=== PATIENT | female | born 1970 | race Hispanic/Latino ===

== ENCOUNTER 2022-07-23 04:04 | Emergency (ER) | payer BC ==
--- OUTSIDE RECORDS SUMMARY | 2022-07-23 04:08 | XMS REPORT | Continuity of Care Document ---
:[address] [facility] t Address [address] Rud[place] [address] [place] [id number] Care Team Providers Name Role Phone [facility]_Walk-In Attending Clinician Unavailable Lisandra Candelario Attending Clinician [phone] Efra Attending Clinician Unavailable Maycol Whitfield Attending Clinician [phone] EDDIE PERRY M.D. Attending Clinician Unavailable [facility]PC[facility]_Walk-In Admitting Clinician Unavailable Efra Admitting Clinician Unavailable Payers Payer Name Policy Type Policy Number Effective Date Expiration Date S [place] [id number] 2021 00:00:00 [place] [id number] 2021 00:00:00 [place] Problems Condition Condition Condition Status Onset Resolution Last Treating Co mments Source Name Details Category Date Date Treatment Clinician Date Hyperlipid Hyperlipid Problem Active P [facility] emia emia 2- Medical 00:00: 00 Systemic Systemic Problem Active [facility] lupus Lupus 2- Medical erythemato Erythemato 00:00: opal poal 00 History of History of Problem Resolve [facility] Abnormal Abnormal d Physic i liver liver ans function function History of History of Problem Resolve [facility] hyperpigme hyperpigme d Ph ys[facility] ntation of ntation of an s skin skin High risk High risk Problem Active [facility] medication medication Ph ysici use use ans History of History of Problem Resolve UT Polyarthra Polyarthra d Ph ysici lgia lgia ans SLE SLE Problem Active UT (systemic (systemic Phys ici lupus lupus ans erythemato erythemato opal) opal) Hematuria Hematuria Problem Active [facility] ans Allergies, Adverse Reactions, Alerts This patient has no known allergies or adverse reactions. Social History Smoking Status Start Date Stop Date Source Never Smoker [facility] Medications Ordered Filled Start Stop Current Ordering Indication Dosage Frequency Signature Comments Components Source Medication Medication Date Date Medication? Clinician (SIG) Name Name predniSONE predniSONE 2018-09 Yes EDDIE TAKE 1 UT 5 MG Oral 5 MG Oral 2-12 AHMED M.D. TABLET [facility] Tablet Tablet 00:00: EVERY ans 00 MORNINg NEEDED FOR FLARE-UPS. predniSONE predniSONE Yes EDDIE TAKE 4 UT 1 MG Oral 1 MG Oral 7-05 AHMED M.D. TABLETS BY Physici Tablet Tablet 00:00: MOUTH ONCE ans 00 DAILY Hydroxychlo Hydroxychlo Yes EDDIE TAKE ONE UT roquine roquine 7-05 AHMED M.D. AND Phy sici Sulfate 200 Sulfate 200 00:00: ONE-HALF ans MG Oral MG Oral 00 TABLET BY Tablet Tablet MOUTH DAILY DULoxetine DULoxetine Yes UT HCl - 60 MG HCl - 60 MG P hysici Oral Oral ans Capsule Capsule Delayed Delayed Release Release Particles Particles Furosemide Furosemide Yes UT 20 MG Oral 20 MG Oral Phy sici Tablet Tablet ans metFORMIN metFORMIN Yes UT HCl - 500 HCl - [address] Physi [address] MG Oral MG Oral ans Tablet Tablet Lisinopril Lisinopril Yes UT 20 MG Oral 20 MG Oral Phy sici Tablet Tablet ans Simvastatin Simvastatin Yes U T 40 MG Oral 40 MG Oral Phy sici Tablet Tablet ans Raloxifene Raloxifene Yes UT HCl - 60 MG HCl - 60 MG P hysici Oral Tablet Oral Tablet a ns Vitamin D3 Vitamin D3 Yes UT 25 MCG 25 MCG Physici (1000 UT) (1000 UT) ans Oral Tablet Oral Tablet ZyrTEC ZyrTEC Yes UT Allergy Allergy Physici CAPS CAPS ans Potassium Potassium Yes UT Citrate ER Citrate ER Phy sici TBCR TBCR ans hydroxychlo hydroxychlo No 1 Q1D hydroxychl [facility] roquine 200 roquine 200 oroquine Medical mg tablet mg tablet 200 mg Take 1 Take 1 tablet tablet tablet Take 1 every day every day tablet by oral by oral every day route. route. by oral route. prednisone prednisone No 1 Q1D prednisone [facility] 5 mg tablet 5 mg tablet 5 mg M edical Take 1 Take 1 tablet tablet tablet Take 1 every day every day tablet by oral by oral every day route. route. by oral route. hydroxychlo hydroxychlo No 1 Q1D hydroxychl [facility] roquine 200 roquine 200 oroquine Medical mg tablet mg tablet 200 mg Take 1 Take 1 tablet tablet tablet Take 1 every day every day tablet by oral by oral every day route. route. by oral route. prednisone prednisone No 1 Q1D prednisone [facility] 5 mg tablet 5 mg tablet 5 mg M edical Take 1 Take 1 tablet tablet tablet Take 1 every day every day tablet by oral by oral every day route. route. by oral route. hydroxychlo hydroxychlo No 1 BID hydroxychl [facility] roquine 200 roquine 200 oroquine Medical mg tablet mg tablet 200 mg Take 1 Take 1 tablet tablet tablet Take 1 twice a day twice a day tablet by oral by oral twice a route for route for day by 90 days. 90 days. oral route for 90 days. prednisone prednisone No prednisone [facility] 5 mg tablet 5 mg tablet 5 mg M edical Take 2 tabs Take 2 tabs tablet PO x 30 PO x 30 Take 2 days then 1 days then 1 tabs PO x PO QD PO QD 30 days then 1 PO QD Advil 200 Advil 200 No 2 Q6H Advil 200 [facility] mg tablet mg tablet mg tablet Medical Take 2 Take 2 Take 2 tablets tablets tablets every 6 every 6 every 6 hours by hours by hours by oral route oral route oral route as as as directed. directed. directed. amoxicillin amoxicillin No 1capsul Q8H amoxicilli [facility] 500 mg 500 mg e(s) n 500 mg Medical capsule capsule capsule Take 1 Take 1 Take 1 capsule capsule capsule every 8 every 8 every 8 hours by hours by hours by oral route. oral route. oral route. hydroxychlo hydroxychlo No hydroxychl [facility] roquine 200 roquine 200 oroquine Medical mg tablet mg tablet 200 mg Take 1 Take 1 tablet tablet by tablet by Take 1 mouth once mouth once tablet by daily daily mouth once daily naproxen naproxen No 1 BID naproxen Betzaida via 500 mg 500 mg 500 mg Medical tablet Take tablet Take tablet 1 tablet 1 tablet Take 1 twice a day twice a day tablet by oral by oral twice a route as route as day by needed. needed. oral route as needed. prednisone prednisone No prednisone [facility] 5 mg tablet 5 mg tablet 5 mg M edical 1 PO QD 1 PO QD tablet 1 PO QD Immunizations Ordered Immunization Filled Immunization Date Status Commen ts Source Name Name COVID-19, mRNA, COVID-19, mRNA, 2021-06-02 Completed [facility] LNP-S, PF, 50 LNP-S, PF, 50 00:00:00 mcg/0.5 mL dose mcg/0.5 mL dose (Moderna) (Moderna) COVID-19, mRNA, COVID-19, mRNA, 2021-06-02 Completed [facility] LNP-S, PF, 50 LNP-S, PF, 50 00:00:00 mcg/0.5 mL dose mcg/0.5 mL dose (Moderna) (Moderna) COVID-19, mRNA, COVID-19, mRNA, 2020-11-08 Completed [facility] LNP-S, PF, 50 LNP-S, PF, 50 00:00:00 mcg/0.5 mL dose mcg/0.5 mL dose (Moderna) (Moderna) COVID-19, mRNA, COVID-19, mRNA, 2020-11-08 Completed [facility] LNP-S, PF, 50 LNP-S, PF, 50 00:00:00 mcg/0.5 mL dose mcg/0.5 mL dose (Moderna) (Moderna) COVID-19, mRNA, COVID-19, mRNA, 2020-10-12 Completed [facility] LNP-S, PF, 50 LNP-S, PF, 50 00:00:00 mcg/0.5 mL dose mcg/0.5 mL dose (Moderna) (Moderna) COVID-19, mRNA, COVID-19, mRNA, 2020-10-12 Completed [facility] LNP-S, PF, 50 LNP-S, PF, 50 00:00:00 mcg/0.5 mL dose mcg/0.5 mL dose (Moderna) (Moderna) tetanus toxoid, tetanus toxoid, 2014-07-10 Completed [facility] unspecified unspecified 00:00:00 formulation formulation tetanus toxoid, tetanus toxoid, 2014-07-10 Completed [facility] unspecified unspecified 00:00:00 formulation formulation tetanus toxoid, tetanus toxoid, 2014-07-10 Completed [facility] unspecified unspecified 00:00:00 formulation formulation tetanus toxoid, tetanus toxoid, 2014-07-10 Completed [facility] unspecified unspecified 00:00:00 formulation formulation Vital Signs Vital Name Observation Time Observation Value Comments Source BP Diastolic 2022-07-16 00:00:00 86 mm[Hg] [facility] Height 2022-07-16 00:00:00 63 [in_i] [facility] BMI (Body Mass 2022-07-16 00:00:00 28.2 kg/m2 [facility]) BP Systolic 2022-07-16 00:00:00 123 mm[Hg] [facility] Body Weight 2022-07-16 00:00:00 2544 [oz_av] [facility] BP Diastolic 2022-04-23 00:00:00 84 mm[Hg] [facility] Height 2022-04-23 00:00:00 63 [in_i] [facility] BMI (Body Mass 2022-04-23 00:00:00 28.7 kg/m2 [facility]) BP Systolic 2022-04-23 00:00:00 123 mm[Hg] [facility] Body Weight 2022-04-23 00:00:00 2596 [oz_av] [facility] BP Diastolic 2022-02-07 00:00:00 92 mm[Hg] [facility] Height 2022-02-07 00:00:00 63 [in_i] [facility] BMI (Body Mass 2022-02-07 00:00:00 28.6 kg/m2 [facility]) BP Systolic 2022-02-07 00:00:00 132 mm[Hg] [facility] Body Weight 2022-02-07 00:00:00 2582 [oz_av] [facility] BP Diastolic 2021-10-10 00:00:00 80 mm[Hg] [facility] Height 2021-10-10 00:00:00 63 [in_i] [facility] BMI (Body Mass 2021-10-10 00:00:00 28.3 kg/m2 [facility]) BP Systolic 2021-10-10 00:00:00 125 mm[Hg] [facility] Body Weight 2021-10-10 00:00:00 2560 [oz_av] [facility] BP Systolic 2019-08-20 15:29:00 122 mm[Hg] [facility] BP Diastolic 2019-08-20 15:29:00 85 mm[Hg] [facility] Height 2019-08-20 15:29:00 62 [in_us] [facility] Weight 2019-08-20 15:29:00 155 [lb_av] [facility] Body Mass Index 2019-08-20 15:29:00 28.35 kg/m2 [facility] Calculated Heart Rate 2019-08-20 15:29:00 69 /min [facility] BP Systolic 2018-11-07 15:07:00 120 mm[Hg] Location: [facility]; [place] [facility] Position: Sitting BP Diastolic 2018-11-07 15:07:00 88 mm[Hg] Location: [facility] [facility] Position: Sitting Procedures Procedure Date / Time Performed Performing Clinician [facility] e ULTRASOUND, ABDOMINAL, REAL 2022-02-07 00:00:00 [facility] TIME WITH IMAGE DOCUMENTATION; COMPLETE MAMMO, screening, digital, 2021-10-10 00:00:00 [facility] bilateral [QLH] URINALYSIS, COMPLETE 2019-08-20 00:00:00 [facility] [QLH] HEPATIC FUNCTION 2019-08-20 00:00:00 [facility] PANEL [QLH] CREATININE W/EGFR 2019-08-20 00:00:00 [facility] [QLH] C-REACTIVE PROTEIN 2019-08-20 00:00:00 [facility] [QLH] CBC (INCLUDES 2019-08-20 00:00:00 [facility] DIFF/PLT) [QLH] UREA NITROGEN (BUN) 2019-08-20 00:00:00 [facility] [QLH] SED RATE BY MODIFIED 2019-08-20 00:00:00 [facility] WESTERGREN [QLH] HEPATIC FUNCTION 2019-03-13 00:00:00 [facility] PANEL [QLH] URINALYSIS, COMPLETE 2019-03-13 00:00:00 [facility] W/REFLEX TO CULTURE [QLH] C-REACTIVE PROTEIN 2019-03-13 00:00:00 [facility] [QLH] SED RATE BY MODIFIED 2019-03-13 00:00:00 [facility] WESTERGREN [QLH] DNA (DS) ANTIBODY 2019-03-13 00:00:00 [facility] [QLH] CBC (INCLUDES 2019-03-13 00:00:00 [facility] DIFF/PLT) [QLH] COMPLEMENT COMPONENT 2019-03-13 00:00:00 [facility] C3C [QLH] COMPLEMENT COMPONENT 2019-03-13 00:00:00 [facility] C4C [QLH] CREATININE W/EGFR 2019-03-13 00:00:00 [facility] [QLH] CBC (INCLUDES 2018-11-07 00:00:00 [facility] DIFF/PLT) [QLH] C-REACTIVE PROTEIN 2018-11-07 00:00:00 [facility] [QLH] HEPATIC FUNCTION 2018-11-07 00:00:00 [facility] PANEL [QLH] URINALYSIS, COMPLETE 2018-11-07 00:00:00 [facility] [QLH] DNA (DS) ANTIBODY 2018-11-07 00:00:00 [facility] [QLH] COMPLEMENT COMPONENT 2018-11-07 00:00:00 [facility] C3C [QLH] COMPLEMENT COMPONENT 2018-11-07 00:00:00 [facility] C4C [QLH] CREATININE W/EGFR 2018-11-07 00:00:00 [facility] [QLH] SED RATE BY MODIFIED 2018-11-07 00:00:00 [facility] RONI Plan of Care Planned Activity Planned Date Details Comments Source Diagnostic Test 2022-07-16 TSH, serum or plasma [facility] Pending 00:00:00 [code = TSH, serum or plasma] Diagnostic Test 2022-07-16 T4, free, serum [code [facility] Pending 00:00:00 = T4, free, serum] Diagnostic Test 2022-07-16 T3, free, serum or [facility] Pending 00:00:00 plasma [code = T3, free, serum or plasma] Diagnostic Test 2019-12-14 [QLH] HEPATIC [facility] Pending 00:00:00 FUNCTION PANEL [code = [QLH] HEPATIC FUNCTION PANEL] Diagnostic Test 2019-12-14 [QLH] CREATININE [facility] Pending 00:00:00 W/EGFR [code = [QLH] CREATININE W/EGFR] Diagnostic Test 2019-12-14 [QLH] C-REACTIVE [facility] Pending 00:00:00 PROTEIN [code = [QLH] C-REACTIVE PROTEIN] Diagnostic Test 2019-12-14 [QLH] CBC (INCLUDES [facility] Pending 00:00:00 DIFF/PLT) [code = [QLH] CBC (INCLUDES DIFF/PLT)] Diagnostic Test 2019-12-14 [QLH] UREA NITROGEN [facility] Pending 00:00:00 (BUN) [code = [QLH] UREA NITROGEN (BUN)] Diagnostic Test 2019-12-14 [QLH] SED RATE BY [facility] Pending 00:00:00 MODIFIED WESTERGREN [code = [QLH] SED RATE BY MODIFIED WESTERGREN] Diagnostic Test 2019-06-27 [QLH] HEPATIC [facility] Pending 00:00:00 FUNCTION PANEL [code = [QLH] HEPATIC FUNCTION PANEL] Diagnostic Test 2019-06-27 [QLH] URINALYSIS, [facility] Pending 00:00:00 COMPLETE W/REFLEX TO CULTURE [code = [QLH] URINALYSIS, COMPLETE W/REFLEX TO CULTURE] Diagnostic Test 2019-06-27 [QLH] C-REACTIVE [facility] Pending 00:00:00 PROTEIN [code = [QLH] C-REACTIVE PROTEIN] Diagnostic Test 2019-06-27 [QLH] SED RATE BY [facility] Pending 00:00:00 MODIFIED WESTERGREN [code = [QLH] SED RATE BY MODIFIED WESTERGREN] Diagnostic Test 2019-06-27 [QLH] DNA (DS) [facility] Pending 00:00:00 ANTIBODY [code = [QLH] DNA (DS) ANTIBODY] Diagnostic Test 2019-06-27 [QLH] CBC (INCLUDES [facility] Pending 00:00:00 DIFF/PLT) [code = [QLH] CBC (INCLUDES DIFF/PLT)] Diagnostic Test 2019-06-27 [QLH] COMPLEMENT [facility] Pending 00:00:00 COMPONENT C3C [code = [QLH] COMPLEMENT COMPONENT C3C] Diagnostic Test 2019-06-27 [QLH] COMPLEMENT [facility] Pending 00:00:00 COMPONENT C4C [code = [QLH] COMPLEMENT COMPONENT C4C] Diagnostic Test 2019-06-27 [QLH] CREATININE [facility] Pending 00:00:00 W/EGFR [code = [[facility]] CREATININE W/EGFR] Encounters Start End Encounter Admission Attending Care Care Encounter Source Date/Time Date/Time Type Type Clinicians Facility Department ID 2022-06-18 Outpatient [facility] [id number] [place] 08:13:53 [id number] [facility] 2022-07-21 2022-07-21 Outpatient GC_CPCN_Wal PRIV PRIV [id number] [facility] 00:00:00 00:00:00 k-In [id number] Medica l 2022-07-16 2022-07-16 Outpatient GC_CPCN_Wal PRIV PRIV [id number] [facility] 00:00:00 00:00:00 k-In [id number] Medica l 2022-07-16 2022-07-16 Maycol [facility] [id number] [facility] 00:00:00 00:00:00 Nahid [facility] ica TILE ERECTOR: [id number] GC_CPCN_Nee [facility] [address], Office* [place] [address] , Ph. 2022-05-01 2022-05-01 Outpatient GC_CPCN_Wal PRIV PRIV [id number] [facility] 00:00:00 00:00:00 k-In [id number] Medica l 2022-04-23 2022-04-23 Outpatient GC_CPCN_Wal PRIV PRIV [id number] [facility] 00:00:00 00:00:00 k-In [id number] Medica l 2022-04-23 2022-04-23 Outpatient Candelario, PRIV PRIV [id number] 00:00:00 00:00:00 Lisandra [id number]-11ed-b [id number] 2022-04-23 2022-04-23 Lisandra [facility] [id number] [facility] 00:00:00 00:00:00 Candelario, [facility] TILE ERECTOR: [id number] [facility], Office[facility] [place] [address] , Ph. 2022-04-06 2022-04-06 Outpatient Helio_Rosa CASILLAS ME[facility]OP [id number] [place] 00:00:00 00:00:00 bin [id number] [facility] 2022-02-09 2022-02-09 Outpatient Mathew MEHOP MEHOP [id number] [place] 11:17:00 11:17:00 bin [id number] [facility] 2022-02-07 2022-02-07 Outpatient GC_CPCN_Wal PRIV PRIV [id number] [facility] 00:00:00 00:00:00 k-In [id number] Medica l 2022-02-07 2022-02-07 [facility] 00:00:00 00:00:00 [employer] [facility] ical TILE ERECTOR: [id number] GC_CPCN_[facility] [address], Office* [place] [address] , Ph. 2022-02-07 2022-02-07 Outpatient [facility] [id number] 00:00:00 00:00:00 Maycol [id number] 2021-10-10 2021-10-10 Outpatient GC_CPCN_Wal PRIV PRIV [id number] [facility] 10:38:00 10:38:00 k-In [id number] Medica l 2021-10-10 2021-10-10 [facility] 00:00:00 00:00:00 [employer] [facility] ical TILE ERECTOR: [id number] GC_CPCN_[facility] [address], Office* [place] [address] , Ph. 2021-10-10 2021-10-10 Outpatient [facility] PRIV [id number] 00:00:00 00:00:00 Maycol [id number] 2019-12-24 2019-[facility] Orthopedics [id number] [place] 15:15:00 15:15:00 t; EDDIE PERRY, - Sugar Lidia Avila 2 POD gal [place] 2 2019-08-20 2019-08-20 Appointmen IRWIN PERRY Multispecia [id number] [place] 16:00:00 16:00:00 t; EDDIE PERRY lty Lidia Miguel M.D. 2019-07-10 2019-07-10 Appointmen [facility] [id number] [place] 11:45:00 11:45:00 t; EDDIE PERRY Phys ici FAYYAZ, M.D. ans M.D. 2019-03-13 2019-03-13 Appointmen IRWIN PERRY Orthopedics [id number] [place] 12:00:00 12:00:00 t; EDDIE PERRY - Sugar Lidia Avila 2 gal [place] 2018-11-07 2018-11-07 Appoint[facility] [id number] [place] 15:15:00 15:15:00 t; EDDIE PERRY, Orthopedic P hysinato MORGAN M.D. Surgery - gal [place] [address] 2 2018-07-11 2018-07-11 Appointmen [facility] [id number] [place] 15:00:00 15:00:00 t; EDDIE PERRY Phys ici FAYYAZ, M.D. ans M.D. 2018-03-28 2018-03-28 Appointmen [facility] [id number] [place] 15:00:00 15:00:00 t; EDDIE PERRY Phys ici FAYYAZ, M.D. ans M.D. 2018-03-07 2018-03-07 Appointmen [facility] [id number] [place] 15:00:00 15:00:00 t; EDDIE PERRY Phys ici FAYYAZ, M.D. ans M.D. 2018-01-22 2018-01-22 Appointmen IRWIN PERRY [facility] [id number] [place] 15:45:00 15:45:00 t; EDDIE PERRY Phys ici FAYYAZ, M.D. ans M.D. 2017-09-20 2017-09-20 AppointIRWIN George [facility] [id number] [place] 16:00:00 16:00:00 t; EDDIE PERRY Phys ici FAYYAZ, M.D. ans M.D. 2017-08-09 2017-08-09 AppointIRWIN George [facility] [id number] [place] 15:15:00 15:15:00 t; EDDIE PERRY Phys ici FAYYAZ, M.D. ans M.D. 2017-06-14 2017-06-14 AppointIRWIN George [facility] [id number] [place] 16:00:00 16:00:00 t; EDDIE PERRY Phys ici FAYYAZ, M.D. ans M.D. 2016-11-09 2016-11-09 AppointIRWIN George [facility] [id number] [place] 08:00:00 08:00:00 t; EDDIE PERRY Phys ici FAYYAZ, M.D. ans M.D. Results Test Description Test Time Test Comments Results Result Comments Source CBC W Auto Differential panel - Blood 2021-10-11 00:00:00 Test Item Value Reference Range Interpretation Comme nts Leukocytes [#/volume] in Blood by Automated count (test 7.5 x10e3/u L 3.4-10.8 code = 6690-2) Erythrocytes [#/volume] in Blood by Automated count 4.54 x10e6/uL 3 .77-5.28 (test code = 789-8) Hemoglobin [Mass/volume] in Blood (test code = 718-7) 13.8 g/dL 11.1-15.9 Hematocrit [Volume Fraction] of Blood by Automated count 42.6 % 34.0-46.6 (test code = 4544-3) Erythrocyte mean corpuscular volume [Entitic volume] by 94 fL 79-97 Automated count (test code = 787-2) Erythrocyte mean corpuscular hemoglobin [Entitic mass] 30.4 pg 26.6-33.0 by Automated count (test code = 785-6) Erythrocyte mean corpuscular hemoglobin concentration 32.4 g/dL 31.5-35.7 [Mass/volume] by Automated count (test code = 786-4) Erythrocyte distribution width [Ratio] by Automated 12.3 % 11 .7-15.4 count (test code = 788-0) Platelets [#/volume] in Blood by Automated count (test 267 x10e3/uL 150-450 code = 777-3) Neutrophils/100 leukocytes in Blood by Automated count 65 % not estab. (test code = 770-8) Lymphocytes/100 leukocytes in Blood by Automated count 31 % not estab. (test code = 736-9) Monocytes/100 leukocytes in Blood by Automated count 3 % n ot estab. (test code = 5905-5) Eosinophils/100 leukocytes in Blood by Automated count 1 % not estab. (test code = 713-8) Basophils/100 leukocytes in Blood by Automated count 0 % n ot estab. 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 Automated count (test code = 10610-4) Immature granulocytes [#/volume] in Blood by Automated 0.0 x10e3/uL 0.0-0.1 count (test code = 10639-9) Nucleated erythrocytes/100 leukocytes [Ratio] in Blood lead furnace operator by Automated count (test code = 88058-9) Morphology [Interpretation] in Blood Narrative (test lead furnace operator code = 64963-3) [facility] panel - Serum or [id number] 00:00:00 Test Item Value Reference Range Interpretation Comments Glucose [Mass/volume] in 102 mg/dL 65-99 H Serum or Plasma (test code = 2345-7) Urea nitrogen [Mass/volume] 11 mg/dL 6-24 in Serum or Plasma (test code = 3094-0) Creatinine [Mass/volume] in 0.61 mg/dL 0.57-1.00 Serum or Plasma (test code = 2160-0) Glomerular filtration 107 mL/min/1.73 >59 rate/1.73 sq M.predicted among non-blacks [Volume Rate/Area] in Serum, Plasma or Blood by Creatinine-based formula (CKD-EPI) (test code = 09185-9) Glomerular filtration 123 mL/min/1.73 >59 rate/1.73 sq M.predicted among blacks [Volume Rate/Area] in Serum, Plasma or Blood by Creatinine-based formula (CKD-EPI) (test code = 64366-4) Urea nitrogen/Creatinine 18 9-23 [Mass Ratio] in Serum or Plasma (test code = 3097-3) Sodium [Moles/volume] in 138 mmol/L 134-144 Serum or Plasma (test code = 2951-2) Potassium [Moles/volume] in 4.6 mmol/L 3.5-5.2 Serum or Plasma (test code = 2823-3) Chloride [Moles/volume] in 104 mmol/L 96-106 Serum or Plasma (test code = 5-0) Carbon dioxide, total 17 mmol/L 20-29 L [Moles/volume] in Serum or Plasma (test code = 2027-9) Calcium [Mass/volume] in 9.0 mg/dL 8.7-10.2 Serum or Plasma (test code = 73470-2) Protein [Mass/volume] in 7.6 g/dL 6.0-8.5 Serum or Plasma (test code = 2885-2) Albumin [Mass/volume] in 4.1 g/dL 3.8-4.8 Serum or Plasma (test code = 1751-7) Globulin [Mass/volume] in 3.5 g/dL 1.5-4.5 Serum by calculation (test code = 27927-6) Albumin/Globulin [Mass Ratio] 1.2 1.2-2.2 in Serum or Plasma (test code = 1759-0) Bilirubin.total [Mass/volume] 0.2 mg/dL 0.0-1.2 in Serum or Plasma (test code = 1975-2) Alkaline phosphatase 84 IU/L 44-121 [Enzymatic activity/volume] in Serum or Plasma (test code = 6768-6) Aspartate aminotransferase 45 IU/L 0-40 H [Enzymatic activity/volume] in Serum or Plasma (test code = 1920-8) Alanine aminotransferase 61 IU/L 0-32 H [Enzymatic activity/volume] in Serum or Plasma (test code = 1742-6) [facility] - [id number] 00:00:00 Test Item Value Reference Range Interpretation Comments Specific gravity of Urine by Test 1.008 1.005-1.030 strip (test code = 5811-5) pH of Urine by Test strip (test 6.0 5.0-7.5 code = 5803-2) Color of Urine (test code = 5778-6) yellow yellow Appearance of Urine (test code = clear clear 5767-9) Leukocyte esterase [Presence] in negative negative Urine by Test strip (test code = 5799-2) Protein [Presence] in Urine by Test negative negative/trace strip (test code = 56862-9) Glucose [Presence] in Urine by Test negative negative strip (test code = 94108-2) Ketones [Presence] in Urine by Test negative negative strip (test code = 2514-8) Hemoglobin [Presence] in Urine by negative negative Test strip (test code = 5794-3) Bilirubin.total [Presence] in Urine negative negative by Test strip (test code = 5770-3) Urobilinogen [Mass/volume] in Urine 0.2 mg/dL 0.2-1.0 by Test strip (test code = 56048-0) Nitrite [Presence] in Urine by Test negative negative strip (test code = 5802-4) Microscopic observation comment [Identifier] in Urine sediment by Light microscopy (test code = 03988-2) [facility] - [facility] or [id number] 00:00:00 Test Item Value Reference Range Interpretation Comments Cholesterol [Mass/volume] in Serum 196 mg/dL 100-199 or Plasma (test code = 2093-3) Triglyceride [Mass/volume] in Serum 85 mg/dL 0-149 or Plasma (test code = 2571-8) Cholesterol in HDL [Mass/volume] in 81 mg/dL >39 Serum or Plasma (test code = 2085-9) Cholesterol in VLDL [Mass/volume] 15 mg/dL 5-40 in Serum or Plasma by calculation (test code = 31586-2) Cholesterol in LDL [Mass/volume] in 100 mg/dL 0-99 H Serum or Plasma by calculation (test code = 26985-6) Laboratory comment [Text] 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 Ratio] in [id number] 00:00:00 Test Item Value Reference Range Interpretation Comments Creatinine [Mass/volume] in Urine 27.8 mg/dL not estab. (test code = 2161-8) Microalbumin [Mass/volume] in <3.0 not estab. Urine (test code = 19313-8) Albumin/Creatinine [Mass ratio] in <11 0-29 Urine (test code = 9318-7) [facility]Hemoglobin.total in [id number] 00:00:00 Test Item Value Reference Range Interpretation Comments Hemoglobin A1c/Hemoglobin.total in 5.7 % 4.8-5.6 H Blood (test code = 4548-4) [facility]] CBC (INCLUDES DIFF/PLT)2019-08-11 13:35:00 Test Item Value Reference Range Interpretation Comments WBC (test code = 6690-2) 8.2 {x10E3/uL} 3.4-10.8 RBC (test code = 789-8) 4.09 {x10E6/uL} 3.77-5.28 Hemoglobin (test code = 12.9 g/dL 11.1-15.9 718-7) Hematocrit (test code = 39.1 % 34.0-46.6 4544-3) MCV (test code = 787-2) 96 fL 79-97 MCH (test code = 785-6) 31.5 pg 26.6-33.0 MCHC (test code = 786-4) 33.0 g/dL 31.5-35.7 RDW (test code = 788-0) 13.0 % 12.3-15.4 Platelets (test code = 777-3) 361 {x10E3/uL} 150-450 Neutrophils (test code = 88 % Not Estab. 770-8) Lymphs (test code = 736-9) 10 % Not Estab. Monocytes (test code = 2 % Not Estab. 5905-5) Eos (test code = 713-8) 0 % Not Estab. Basos (test code = 706-2) 0 % Not Estab. Immature Cells (test code = See Comment Immature Cells) Neutrophils (Absolute); Above 7.2 {x10E3/uL} 1.4-7.0 High Threshold (test code = 751-8) Lymphs (Absolute) (test code 0.8 {x10E3/uL} 0.7-3.1 = 731-0) Monocytes(Absolute) (test 0.2 {x10E3/uL} 0.1-0.9 code = 742-7) Eos (Absolute) (test code = 0.0 {x10E3/uL} 0.0-0.4 711-2) Baso (Absolute) (test code = 0.0 {x10E3/uL} 0.0-0.2 704-7) Immature Granulocytes (test 0 % Not Estab. code = 31809-0) Immature Grans (Abs) (test 0.0 {x10E3/uL} 0.0-0.1 code = 41146-1) NRBC (test code = 89895-8) See Comment Hematology Comments: (test See Comment code = 13660-8) [facility]] SED RATE BY MODIFIED [id number] 13:35:00 Test Item Value Reference Range Interpretation Comments Sedimentation Rate-Roni 29 {mm/hr} 0-32 (test code = 4537-7) [facility][L] Hepatic Function Panel (7)2019-08-11 13:35:00 Test Item Value Reference Range Interpretation Comments Protein, Total (test code = 7.3 g/dL 6.0-8.5 2885-2) Albumin (test code = 1751-7) 4.0 g/dL 3.5-5.5 Bilirubin, Total (test code = 0.3 mg/dL 0.0-1.2 1974-2) Bilirubin, Direct (test code = 0.09 mg/dL 0.00-0.40 1967-7) Alkaline Phosphatase (test code = 59 {IU/L} 39-117 6768-6) AST (SGOT) (test code = 1920-8) 25 {IU/L} 0-40 ALT (SGPT) (test code = 1742-6) 24 {IU/L} 0-32 [facility][QL] CREATININE [id number] 13:35:00 Test Item Value Reference Range Interpretation Comments Creatinine (test code = 0.71 mg/dL 0.57-1.00 2160-0) eGFR If NonAfricn Am (test 102 mL/min/1.7 >59 code = 92819-2) eGFR If Africn Am (test code = 117 mL/min/1.7 >59 75306-0) [facility][QL] COMPLEMENT COMPONENT [id number] 13:35:00 Test Item Value Reference Range Interpretation Comments Complement C4, Serum; Below Low 12 mg/dL 14-44 Threshold (test code = 4498-2) [facility]] COMPLEMENT COMPONENT [id number] 13:35:00 Test Item Value Reference Range Interpretation Comments Complement C3, Serum (test code = 93 mg/dL 82-167 4485-9) [facility]] DNA (DS) [id number] 13:35:00 Test Item Value Reference Range Interpretation Comments Anti-DNA (DS) Ab Qn; 66 {IU/mL} 0-9 Negativ e <5 Equivocal Above High Threshold 5 - 9 P ositive >9 (test code = 5130-0) [facility][QL] C-REACTIVE [id number] 13:35:00 Test Item Value Reference Range Interpretation Comments C-Reactive Proteint, Quant; Above 14 mg/L 0-10 High Threshold (test code = 1988-5) [facility]] URINALYSIS, COMPLETE W/REFLEX TO [id number] 13:35:00 Test Item Value Reference Range Interpretation Comments Specific [place] 1.021 1.005-1.030 (test code = 2965-2) pH (test code = 6.0 5.0-7.5 5803-2) Urine-Color (test Yellow Yellow code = 5778-6) Appearance (test code Clear Clear = 5767-9) WBC Esterase (test Negative Negative code = 5799-2) Protein (test code = Negative Negative/Trace 79964-9) Glucose (test code = Negative Negative 2349-9) Ketones (test code = Negative Negative 2514-8) Occult Blood; 3+ Negative A Abnormal (test code = 5794-3) Bilirubin (test code Negative Negative = 5770-3) Urobilinogen,Semi-Qn 0.2 mg/dL 0.2-1.0 (test code = 81702-0) Nitrite, Urine (test Negative Negative code = 5802-4) Microscopic See Comment Microscopic was Examination (test indicated and was code = 67708-3) performed. WBC; Abnormal (test 6-10 0-5 A code = 6690-2) RBC; Abnormal (test 3-10 0-2 A code = 789-8) Epithelial Cells (non 0-10 0-10 renal) (test code = 61022-1) Epithelial Cells See Comment (renal) (test code = 02332-6) Casts (test code = See Comment 35062-9) Cast Type (test code See Comment = 43859-1) Crystals (test code = See Comment 23130-0) Crystal Type (test See Comment code = 5782-8) Mucus Threads (test Present Not Estab. code = 64592-5) Urine Culture, Final report None seen/Few Routine (test code = 630-4) Yeast (test code = See Comment 06761-7) Trichomonas (test See Comment code = 74540-8) Comment (test code = See Comment Comment) Urinalysis Reflex See Comment This speci men has (test code = reflexed to a U rine Urinalysis Reflex) Culture. Result 1 (test code = No growth Result 1) [facility]] CBC (INCLUDES DIFF/PLT)2019-02-26 14:17:00 Test Item Value Reference Range Interpretation Comments WBC (test code = 6690-2) 6.2 {x10E3/uL} 3.4-10.8 RBC (test code = 789-8) 4.01 {x10E6/uL} 3.77-5.28 Hemoglobin (test code = 12.7 g/dL 11.1-15.9 718-7) Hematocrit (test code = 38.0 % 34.0-46.6 4544-3) MCV (test code = 787-2) 95 fL 79-97 MCH (test code = 785-6) 31.7 pg 26.6-33.0 MCHC (test code = 786-4) 33.4 g/dL 31.5-35.7 RDW (test code = 788-0) 13.1 % 12.3-15.4 Platelets (test code = 777-3) 277 {x10E3/uL} 150-450 Neutrophils (test code = 70 % Not Estab. 770-8) Lymphs (test code = 736-9) 23 % Not Estab. Monocytes (test code = 3 % Not Estab. 5905-5) Eos (test code = 713-8) 4 % Not Estab. Basos (test code = 706-2) 0 % Not Estab. Immature Cells (test code = See Comment Immature Cells) Neutrophils (Absolute) (test 4.3 {x10E3/uL} 1.4-7.0 code = 751-8) Lymphs (Absolute) (test code 1.4 {x10E3/uL} 0.7-3.1 = 731-0) Monocytes(Absolute) (test 0.2 {x10E3/uL} 0.1-0.9 code = 742-7) Eos (Absolute) (test code = 0.2 {x10E3/uL} 0.0-0.4 711-2) Baso (Absolute) (test code = 0.0 {x10E3/uL} 0.0-0.2 704-7) Immature Granulocytes (test 0 % Not Estab. code = 12597-6) Immature Grans (Abs) (test 0.0 {x10E3/uL} 0.0-0.1 code = 18832-1) NRBC (test code = 02409-3) See Comment Hematology Comments: (test See Comment code = 15339-2) [facility]] URINALYSIS, [id number] 14:17:00 Test Item Value Reference Range Interpretation Comments Specific [place] 1.015 1.005-1.030 (test code = 2965-2) pH (test code = 6.0 5.0-7.5 5803-2) Urine-Color (test Yellow Yellow code = 5778-6) Appearance (test code Clear Clear = 5767-9) WBC Esterase (test Negative Negative code = 5799-2) Protein (test code = Negative Negative/Trace 30034-6) Glucose (test code = Negative Negative 2349-9) Ketones (test code = Negative Negative 2514-8) Occult Blood (test Negative Negative code = 5794-3) Bilirubin (test code Negative Negative = 5770-3) Urobilinogen,Semi-Qn 0.2 mg/dL 0.2-1.0 (test code = 22691-3) Nitrite, Urine (test Negative Negative code = 5802-4) Microscopic See Comment Microscopic not Examination (test indicated and not code = 77929-6) performed. [facility][L] Hepatic Function Panel (7)2019-02-26 14:17:00 Test Item Value Reference Range Interpretation Comments Bilirubin, Direct (test code = 0.12 mg/dL 0.00-0.40 1967-7) Protein, Total (test code = 7.1 g/dL 6.0-8.5 2885-2) Albumin (test code = 1751-7) 4.1 g/dL 3.5-5.5 Bilirubin, Total (test code = 0.3 mg/dL 0.0-1.2 1974-2) Alkaline Phosphatase (test code = 54 {IU/L} 39-117 6768-6) AST (SGOT) (test code = 1920-8) 23 {IU/L} 0-40 ALT (SGPT) (test code = 1742-6) 22 {IU/L} 0-32 [facility][QL] CREATININE [id number] 14:17:00 Test Item Value Reference Range Interpretation Comments Creatinine (test code = 0.71 mg/dL 0.57-1.00 2160-0) eGFR If NonAfricn Am (test 102 mL/min/1.7 >59 code = 03530-5) eGFR If Africn Am (test code = 118 mL/min/1.7 >59 65557-3) [facility]] COMPLEMENT COMPONENT [id number] 14:17:00 Test Item Value Reference Range Interpretation Comments Complement C4, Serum (test code = 14 mg/dL 1444 4498-2) [facility]] COMPLEMENT COMPONENT [id number] 14:17:00 Test Item Value Reference Range Interpretation Comments Complement C3, Serum (test code = 92 mg/dL 82-167 4485-9) [facility]] DNA (DS) [id number] 14:17:00 Test Item Value Reference Range Interpretation Comments Anti-DNA (DS) Ab Qn; 109 {IU/mL} 0-9 Negativ e <5 Equivocal Above High Threshold 5 - 9 P ositive >9 (test code = 5130-0) [facility]] C-REACTIVE [id number] 14:17:00 Test Item Value Reference Range Interpretation Comments C-Reactive Protein, 6 mg/L 0-10 Please note reference Quant (test code = interval change 1988-01) [facility][QL] SED RATE BY MODIFIED [id number] 14:17:00 Test Item Value Reference Range Interpretation Comments Sedimentation Rate-Westergren 29 {mm/hr} 0-32 (test code = 4537-7) [facility]
[2022-07-23 04:56] LABS: Absolute Lymphocytes (CBC) 0.9 K/uL (0.7-4.9); Hematocrit 38.4 % (36.0-45.0); Lymphocytes % 12.9 % (15.3-44.8); MCV 91.7 fL (80-100); MPV 6.6 fL (7.6-11.3); RBC Red Blood Cell Count 4.19 M/uL (3.86-4.86)
[2022-07-23 05:22] LABS: Magnesium 2.2 mg/dL (1.8-2.4); Potassium 3.3 mmol/L (3.5-5.1); Troponin High Sensitivity 3.9 pg/mL (<58.9)
--- NOTE | 2022-07-23 07:37 | ER ---
Nurse's Notes [facility] Name: Emily Costa Age: 52 yrs Sex: Female : 1970 Arrival Date: 07/23/2022 Time: 04:08 Bed 5 Private MD: Diagnosis: Chest pain, unspecified;Pain in throat;Shortness of breath Presentation: 07/23 04:20 Chief complaint: Patient states: chest pain off and on since last Saturday cough and sore kl throat x 9 days completed round of antibiotics. Coronavirus screen: Vaccine status: Patient reports receiving the 2nd dose of the covid vaccine. Ebola Screen: Patient negative for fever greater than or equal to 101.5 degrees Fahrenheit, and additional compatible Ebola Virus Disease symptoms. Initial Sepsis Screen: Does the patient meet any 2 criteria? No. Patient's initial sepsis screen is negative. Does the patient have a suspected source of infection? No. Patient's initial sepsis screen is negative. Risk Assessment: Do you want to hurt yourself or someone else? Patient reports no desire to harm self or others. 04:20 Method Of Arrival: Ambulatory 04:20 Acuity: CARLOS 3 kl 07:35 Onset of symptoms was July 23, 2022. Triage Assessment: 04:33 General: Appears in no apparent distress. comfortable, Behavior is calm, cooperative. kl Pain: Complains of pain in chest. EENT: No deficits noted. No signs and/or symptoms were reported regarding the EENT system. Neuro: No deficits noted. Cardiovascular: No deficits noted. Rhythm is sinus rhythm. Respiratory: No deficits noted. Airway is patent Respiratory effort is even, unlabored, Respiratory pattern is regular, symmetrical. GI: No deficits noted. No signs and/or symptoms were reported involving the gastrointestinal system. : No deficits noted. No signs and/or symptoms were reported regarding the genitourinary system. Derm: No deficits noted. No signs and/or symptoms reported regarding the dermatologic system. Historical: - Allergies: 04:31 No Known Allergies; kl - Home Meds: 04:31 hydroxychloroquine 200 mg oral tab 1 tab 2 times per day [Active]; prednisone 5 mg/mL kl Oral conc once daily [Active]; - PMHx: 04:32 Lupus erythematosus; kl - PSHx: 04:32 None; kl - Immunization history:: Adult Immunizations not up to date. - Social history:: Smoking status: Patient denies any tobacco usage or history of. Screenin:17 Abuse screen: Denies threats or abuse. Nutritional screening: No deficits noted. bb Tuberculosis screening: No symptoms or risk factors identified. Fall Risk None identified. Assessment: 04:34 Reassessment: see triage assessment. kl 07:18 Reassessment: Patient appears in no apparent distress at this time. Patient is alert, bb oriented x 3, equal unlabored respirations, skin warm/dry/pink. Patient states symptoms have improved. Pain: Denies pain. Vital Signs: 04:20 BP 96 / 77; Pulse 85; Resp 16; Temp 98.4(O); Pulse Ox 100% on R/A; Weight 77.11 kg; kl Height 5 ft. 2 in. (157.48 cm); Pain 2/10; 04:53 BP 102 / 67; Pulse 83; Resp 16; Pulse Ox 99% on R/A; kl 05:39 BP 103 / 70; Pulse 84; Resp 18; Pulse Ox 99% on R/A; kl 07:35 BP 109 / 75; Pulse 81; Resp 18; Pulse Ox 99% on R/A; ph 04:20 Body Mass Index 31.09 (77.11 kg, 157.48 cm) ED Course: 04:08 Patient arrived in ED. bp1 04:10 Rodrigo Koenig DO is Attending Physician. ms3 04:31 Triage completed. kl 04:33 EKG completed in triage. Results shown to MD. kl 04:52 Basic Metabolic Panel Sent. kl 04:52 CBC with Diff Sent. kl 05:26 XRAY Chest (1 view) In Process Unspecified. EDMS 06:18 CT Chest For PE Angio In Process Unspecified. EDMS 07:35 Maylin Headley, RN is Primary Nurse. ph 07:35 Arron Pascal DO is Referral Physician. ms3 07:35 Arm band placed on. ph 07:35 Patient has correct armband on for positive identification. Placed in gown. Bed in low ph position. Call light in reach. Client placed on continuous cardiac and pulse oximetry monitoring. NIBP monitoring applied. 07:35 No provider procedures requiring assistance completed. Patient maintains SpO2 ph saturation greater than 95% on room air. 08:21 IV discontinued, intact, bleeding controlled, No redness/swelling at site. Pressure tw2 dressing applied. Administered Medications: No medications were administered Medication: 07:18 VIS not applicable for this client. bb Outcome: 07:36 Discharge ordered by . ms3 08:21 Discharged to home ambulatory, with significant other. tw2 08:21 Condition: stable 08:21 Discharge instructions given to patient, significant other, Instructed on discharge instructions, follow up and referral plans. Demonstrated understanding of instructions, follow-up care. 08:21 Patient left the ED. tw2 Signatures: Dispatcher [employer] EDMS Digna Johnson RN RN Mary Ann Reyes RN RN Maylin Epstein RN RN ph Wise, Tara, RN RN tw2 Rodrigo Koenig DO DO ms3 Marjorie Young bp1
--- NOTE | 2022-07-23 07:37 | EDPHYS ---
Physician Documentation [facility] Name: Emily Costa Age: 52 yrs Sex: Female : 1970 Arrival Date: 07/23/2022 Time: 04:08 Bed 5 Private MD: ED Physician Rodrigo Koenig HPI: 07/23 07:37 This 52 yrs old Female presents to ER via Ambulatory with complaints of Chest ms3 Pain > 30 y/o. 07:37 This 52 yrs old Female presents to ER via Ambulatory with complaints of Chest ms3 Pain > 30 y/o. 07:37 52-year-old female with past medical history of lupus presents for throat pain and ms3 fever that has been ongoing for 9 days. Patient states yesterday she developed chest pain that is described as pressure and rated a 6/10. Patient denies alleviating or inciting factors. Patient notes she has completed a course of amoxicillin for her sore throat.. Historical: - Allergies: 04:31 No Known Allergies; kl - Home Meds: 04:31 hydroxychloroquine 200 mg oral tab 1 tab 2 times per day [Active]; prednisone 5 mg/mL kl Oral conc once daily [Active]; - PMHx: 04:32 Lupus erythematosus; kl - PSHx: 04:32 None; kl - Immunization history:: Adult Immunizations not up to date. - Social history:: Smoking status: Patient denies any tobacco usage or history of. ROS: 07:37 Constitutional: Negative for fever, and chills. ms3 07:37 Cardiovascular: Negative for chest pain, and palpitations. Respiratory: Negative for shortness of breath, cough, wheezing, and pleuritic chest pain, Abdomen/GI: Negative for abdominal pain, nausea, vomiting, diarrhea, and constipation, MS/Extremity: Negative for injury and deformity, Skin: Negative for injury, rash, and discoloration. 07:37 ENT: Positive for sore throat. 07:37 All other systems are negative. Exam: 04:21 ECG was reviewed by the Attending Physician. ms3 07:37 Constitutional: This is a well developed, well nourished patient who is awake, alert, ms3 and in no acute distress. Head/Face: Normocephalic, atraumatic. Neck: Trachea midline, no cervical lymphadenopathy. Supple, full range of motion without nuchal rigidity, or vertebral point tenderness. No Meningismus. Chest/axilla: Normal chest wall appearance and motion. Nontender with no deformity. Cardiovascular: Regular rate and rhythm with a normal S1 and S2. No gallops, murmurs, or rubs. Normal PMI, no JVD. No pulse deficits. Respiratory: Lungs have equal breath sounds bilaterally, clear to auscultation and percussion. No rales, rhonchi or wheezes noted. No increased work of breathing, no retractions or nasal flaring. Abdomen/GI: Soft, non-tender, with normal bowel sounds. No distension or tympany. No guarding or rebound. No evidence of tenderness throughout. 07:37 Skin: Warm, dry with normal turgor. Normal color with no rashes, no lesions, and no evidence of cellulitis. MS/ Extremity: Pulses equal, no cyanosis. Neurovascular intact. Full, normal range of motion. 07:37 ENT: PND. Vital Signs: 04:20 BP 96 / 77; Pulse 85; Resp 16; Temp 98.4(O); Pulse Ox 100% on R/A; Weight 77.11 kg; kl Height 5 ft. 2 in. (157.48 cm); Pain 2/10; 04:53 BP 102 / 67; Pulse 83; Resp 16; Pulse Ox 99% on R/A; kl 05:39 BP 103 / 70; Pulse 84; Resp 18; Pulse Ox 99% on R/A; kl 07:35 BP 109 / 75; Pulse 81; Resp 18; Pulse Ox 99% on R/A; ph 04:20 Body Mass Index 31.09 (77.11 kg, 157.48 cm) kl MDM: 04:18 Patient medically screened. ms3 07:37 Differential diagnosis: abnormal EKG, acute myocardial infarction, anxiety, chest wall ms3 pain, pulmonary embolus. HEART Score: History: Slightly Suspicious (0), ECG: Normal (0), Age: > 45 and < 65 years (1), Risk Factors: No Risk Factors Known (0), Troponin: < or = 1 x Normal Limit (0), Total Score = 1. Data reviewed: vital signs, nurses notes, lab test result(s), EKG, radiologic studies, and as a result, I will discharge patient. Special discussion: Based on the patient's history, exam, and Dx evaluation, there is no indication for emergent intervention or inpatient Tx. It is understood by the patient/guardian that if the Sx's persist or worsen they need to return immediately for re-evaluation. 07/23 04:36 Order name: Basic Metabolic Panel; Complete Time: 05:28 07/23 04:36 Order name: CBC with Diff; Complete Time: 05:15 07/23 04:36 Order name: Troponin HS; Complete Time: 05:28 07/23 04:38 Order name: D-Dimer; Complete Time: 05:15 07/23 04:54 Order name: Magnesium; Complete Time: 05:28 EDMS 07/23 04:36 Order name: XRAY Chest (1 view) 07/23 04:36 Order name: EKG; Complete Time: 04:37 07/23 04:36 Order name: Cardiac monitoring; Complete Time: 04:36 07/23 04:36 Order name: EKG - Nurse/Tech; Complete Time: 04:36 07/23 04:36 Order name: IV Saline Lock; Complete Time: 04:36 07/23 04:36 Order name: Labs collected and sent; Complete Time: 04:51 07/23 04:36 Order name: O2 Per Protocol; Complete Time: 04:52 07/23 05:29 Order name: CT Chest For PE Angio ms3 07/23 04:36 Order name: O2 Sat Monitoring; Complete Time: 04:52 EC:21 Rate is 87 beats/min. Rhythm is regular. QRS [place] is Normal. MA interval is normal. QRS ms3 interval is normal. Clinical impression: Normal ECG. Interpreted by me. Reviewed by me. Administered Medications: No medications were administered Disposition Summary: 07/23/22 07:36 Discharge Ordered Location: Home ms3 Condition: Stable ms3 Diagnosis - Chest pain, unspecified ms3 - Pain in throat ms3 - Shortness of breath ms3 Followup: ms3 - With: Arron Pascal DO - When: 1 - 2 days - Reason: Re-evaluation by your physician Discharge Instructions: - Discharge Summary Sheet ms3 - Nonspecific Chest Pain, Adult ms3 - Sore Throat ms3 Forms: - Medication Reconciliation Form ms3 - Thank You Letter ms3 - Work release form tw2 - Antibiotic Education ms3 - Prescription Opioid Use ms3 Signatures: Dispatcher [employer] EDMS Digna Johnson RN RN Rodrigo Winslow, DO ms3 Corrections: (The following items were deleted from the chart) 04:54 04:39 MAGNESIUM+[email or web address].LAB.BRZ ordered. EDMS EDMS
[2022-07-23 08:35] VITALS: TEMP 98.4
[2022-07-23 08:37] VITALS: O2SAT 99
[2022-07-23 08:39] VITALS: BP 109/75
--- NOTE | 2022-07-23 13:55 | RAD REPORT ---
EXAM DESCRIPTION: CT - Chest For Pe Angio - 07/23/2022 7:30 am CLINICAL HISTORY: Chest pain, SOB; [facility] MAIN TECHNIQUE: CT angiogram of the chest using intravenous contrast. MIP reconstructions were performed. All CT scans at this facility use dose modulation, iterative reconstruction, and/or weight based dosi ng when appropriate to reduce radiation dose to as low as reasonably achievable. COMPARISON: None. FINDINGS: PULMONARY ARTERIES: The pulmonary arteries are adequately opacified to the subsegmental level. No intraluminal filling defects are identified to suggest acute PE. MEDIASTINUM: The heart and great vessels appear unremarkable. There is no evidence for pericardial effusion. There is no pathologically enlarged adenopathy. LUNGS: There are linear bands of atelectasis at the bilateral lung bases. The lungs are otherwise c lear bilaterally. No focal consolidation identified. No dominant pulmonary nodules or masses are iden tified. No pleural effusion or pneumothorax. VISUALIZED ABDOMEN: The visualized solid organs of the abdomen reveal no acute process. The liver a ppears low in density raising concern for fatty infiltration. BONES AND SOFT TISSUES: The soft tissues and osseous structures appear unremarkable. IMPRESSION: 1. No CT evidence of pulmonary embolism. No other acute cardiopulmonary process iden tified. 2. Atelectatic changes are present at the bilateral lung bases. 3. Low-density appearance of the liver is concerning for mild fatty infiltration. Electronically signed by: Vince Eng MD 07/23/2022 6:29 AM TANK HOUSE SUPERVISOR Due to temporary technical issues with the PACS/Fluency reporting system, reports are being signed by the in house radiologists without review as a courtesy to insure prompt reporting. The interpreting radiologist is fully responsible for the content of the report.
--- NOTE | 2022-07-23 14:01 | RAD REPORT ---
EXAM DESCRIPTION: RAD - Chest Single View - 07/23/2022 5:24 am COMPARISON: None. CLINICAL HISTORY: [facility] MAIN CHEST PAIN FINDINGS: A single AP view of the chest demonstrates a normal cardiomediastinal silhouette. No pneumothorax or pleural effusion. No consolidation or pulmonary edema. Osseous structures are intact. IMPRESSION: No acute chest process. Electronically signed by: Luis Rasheed MD 07/23/2022 6:55 AM TUBE HEATER Due to temporary technical issues with the PACS/Fluency reporting system, reports are being signed by the in house radiologists without review as a courtesy to insure prompt reporting. The interpreting radiologist is fully responsible for the content of the report.
--- NOTE | 2022-07-24 08:25 | EKG ---
Test Date: 2022-07-23 Test Time: 04:21:26 Career Technical Education Teacher: RHEA MEASUREMENT RESULTS: Intervals: Rate: 87 RI: 150 QRSD: 86 QT: 384 QTc: 462 [place]: P: 29 RI: 150 QRS: -1 T: 23 INTERPRETIVE STATEMENTS: Normal sinus rhythm Normal ECG No previous ECG available for comparison Electronically Signed On 07-24-22 08:20:31 GRINDING MILL OPERATOR by Rogelio Degroot
== END 2022-07-23 08:21 | disposition home or self-care (01) ==
LOC: ER 04:04
DX: R07.89 Other chest pain (principal); R07.0 Pain in throat
CPT/HCPCS: 93005; 85025; 80048; 36415; 83735; 85379; 84484; 71275; 71045; 99284; Q9967